=== PATIENT | male | born 1995 | race Hispanic/Latino ===

== ENCOUNTER 2017-05-07 21:44 | Emergency (ER) | payer OTHER ==
[~2017-05-07] VITALS: Ht 188 cm; Wt 102.7 kg
[2017-05-07 21:50] VITALS: BP 141/89
[2017-05-07] MEDS ORDERED: ROBA500T PO (22:13)
[2017-05-07] MEDS ORDERED: METHOCARBAMOL 500 MG TAB PO ONE (22:15)
[2017-05-07] MEDS ORDERED: KETOROLAC 60 MG/2 ML VIAL (J1885) IM ONE (22:15)
--- NOTE | 2017-05-08 20:23 | ECGEPIP ---
Stationary ECG Study [facility] [place] - ED Test Date: 2017-05-07 Pat Name: LYNNETTE PLASENCIA Department: Room: - Gender: M [employer] Consultant: ct : 1995 Requested By: CADENCE Norris Order Number: [id number] Reading MD: Tina Jordan Measurements Intervals [place] Rate: 82 P: 50 MA: 144 QRS: 31 QRSD: 108 T: 28 QT: 369 QTc: 431 Interpretive Statements SINUS RHYTHM NO PRIOR FOR COMPARISON Electronically Signed On 05-08-2017 20:23:36 EDT by Tina Jordan
== END 2017-05-07 22:34 | disposition home or self-care (01) ==
LOC: M ED 21:44
DX: S29.011A Strain of muscle and tendon of front wall of thorax, initial encounter (principal); X58.XXXA Exposure to other specified factors, initial encounter; Y92.89 Other specified places as the place of occurrence of the external cause; Y93.89 Activity, other specified; Y99.9 Unspecified external cause status
CPT/HCPCS: 93005; 96372; 99283; J1885

== ENCOUNTER 2018-03-08 20:20 | Emergency (ER) | payer OTHER ==
[2018-03-08] MEDS: ADACEL/BOOSTRIX VACCINE (DIPHTH/PERTUSS/ACELL/TETANUS)0.5ML SYR (90715) IM (22:15)
[2018-03-08] MEDS: LIDOCAINE 2% MDV 20 ML VIAL SC (22:15)
[2018-03-08] MEDS: CEPHALEXIN 500 MG CAP PO (22:15)
== END 2018-03-08 22:36 | disposition home or self-care (01) ==
LOC: M ED 20:20
DX: S61.411A Laceration without foreign body of right hand, initial encounter (principal); W26.0XXA Contact with knife, initial encounter; Y92.89 Other specified places as the place of occurrence of the external cause; Y99.0 Civilian activity done for income or pay
CPT/HCPCS: 90715